=== PATIENT | female | born 2000 | race Caucasian/White ===

== ENCOUNTER 2019-05-24 02:00 | Emergency (ER) | payer MEDICAID, OTHER ==
[~2019-05-24] VITALS: Ht 162.6 cm; Wt 85.2 kg
[~2019-05-24 02:00] MED LIST: ACET500C5 PO; CEPH-443 PO
[2019-05-24 02:20] VITALS: BP 123/56; PULSE 66; RESP 18; Ht 162.6 cm; Wt 85.2 kg
[2019-05-24] MEDS ORDERED: ONDANSETRON (ODT) 4 MG TAB ODT STA (02:58)
[2019-05-24] MEDS ORDERED: ACETAMINOPHEN 500 MG TAB PO STA (02:58)
[2019-05-24] MEDS ORDERED: CEPHALEXIN 500 MG CAP PO ONE (04:30)
== END 2019-05-24 04:34 | disposition home or self-care (01) ==
LOC: FTE 02:00
DX: O26.892 Other specified pregnancy related conditions, second trimester (principal); R10.2 Pelvic and perineal pain; O23.12 Infections of bladder in pregnancy, second trimester; Z3A.14 14 weeks gestation of pregnancy
CPT/HCPCS: 76805; 80053; 81001; 84702; 85025; 86900; 86901; 87086; Z7502; Z7610